=== PATIENT | female | born 1985 | race Caucasian/White ===

== ENCOUNTER 2018-09-28 22:10 | Emergency (ER) | payer MEDICAID ==
[~2018-09-28] VITALS: Ht 175.3 cm; Wt 86.8 kg
[~2018-09-28 22:10] MED LIST: AMOXICILLIN875 MG PO; MULTI VITAMINS1 TAB PO; PERCOCET 325 MG1 TA2 PO; ZOFRAN ODT8 MG PO
[2018-09-28 22:13] VITALS: PULSE 118; TEMP 99.1
[2018-09-28 22:40] LABS: BASO # 0.1 (0.0-0.2); BASO % 0.4 % (0.0-2.0); EOS # 0.1 (0.0-0.7); EOS % 0.5 % (0-4.0); GRAN # 15.8 (1.4-6.5); GRAN % 83.3 % (42.2-75.2); HEMATOCRIT 42.8 % (37.0-47.0); HEMOGLOBIN 14.2 g/dl (12.5-16.0); LYMPH # 1.6 (1.2-3.4); LYMPH % 8.6 % (20.0-51.0); MEAN CELL VOLUME 90 fl (80.0-100.0); MEAN CORPUSCULAR HEMOGLOBIN 30 pg (27.0-31.0); MEAN CORPUSCULAR HGB CONC 33 g/dl (33.0-37.0); MEAN PLATELET VOLUME 9.9 fl (7.4-10.4); MONO # 1.3 (0.1-0.6); MONO % 6.6 % (1.7-9.3); PLATELET COUNT 298 K/mm3 (130-400); RED BLOOD COUNT 4.74 M/mm3 (4.10-5.30); REDCELL DISTRIBUTION WIDTH-CV 13.1 % (11.5-14.5)
[2018-09-28 22:49] LABS: ALBUMIN 4.8 gm/dL (3.5-5.0); BILIRUBIN,TOTAL 0.5 mg/dL (0.0-1.0); CALCIUM 9.3 mg/dL (8.4-10.2); CREATININE, serum 1.12 (0.52-1.25); POTASSIUM 3.9 mmol/L (3.4-5.0); TOTAL PROTEIN 7.9 gm/dL (6.4-8.2)
[2018-09-28 23:53] VITALS: BP 138/81
[2018-09-30 11:16] LABS: ARTERIAL BLOOD GAS BASE EXCESS -9.7 (-2-2); ARTERIAL BLOOD GAS PCO2 25.8 mmHg (35-45); ARTERIAL BLOOD GAS pH 7.35 (7.35-7.45)
[2018-09-30 11:17] LABS: ARTERIAL BLD GAS O2 SATURATION 96.2 % (92-100); ARTERIAL BLD GAS TCO2 CT 14.8
== END 2018-09-28 23:41 | disposition short-term general hospital (02) ==
LOC: COL.ER 22:10
PROVIDERS: Emergency Medicine
DX: T20.24XA Burn of second degree of nose (septum), initial encounter (principal); T20.00XA Burn of unspecified degree of head, face, and neck, unspecified site, initial encounter; T21.12XA Burn of first degree of abdominal wall, initial encounter; T22.112A Burn of first degree of left forearm, initial encounter; T21.11XA Burn of first degree of chest wall, initial encounter; Z23 Encounter for immunization; X08.8XXA Exposure to other specified smoke, fire and flames, initial encounter
CPT/HCPCS: J2270; J2405; J7030